=== PATIENT | male | born 1990 | race Caucasian/White ===

== ENCOUNTER 2017-02-17 18:21 | Emergency (ER) | payer SELFPAY ==
[~2017-02-17] VITALS: Ht 175.3 cm; Wt 92.1 kg
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
--- NOTE | 2017-02-17 18:38 | NUR ---
dr cancino at bedside for eval.
[2017-02-17] MEDS ORDERED: IBUPROFEN 600 MG TABLET PO ONE ×2 (18:39→19:00)
--- NOTE | 2017-02-17 19:27 | NUR ---
Patient discharged to home in stable condition. Written and verbal after care instructions given. Patient verbalizes understanding of instruction.
[2017-02-17 19:28] VITALS: BP 128/66
== END 2017-02-17 19:29 | disposition home or self-care (01) ==
LOC: ER 18:23
DX: S39.012A Strain of muscle, fascia and tendon of lower back, initial encounter (principal); M54.6 Pain in thoracic spine; V49.40XA Driver injured in collision with unspecified motor vehicles in traffic accident, initial encounter; Y93.89 Activity, other specified; Y92.89 Other specified places as the place of occurrence of the external cause; Y99.9 Unspecified external cause status
CPT/HCPCS: 72100-TC; A4606; Z7610